=== PATIENT | male | born 2000 | race Caucasian/White ===

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

== ENCOUNTER 2022-05-11 11:46 | Emergency (ER) | payer MEDICAID ==
[~2022-05-11] VITALS: Ht 180.3 cm; Wt 110.0 kg
[~2022-05-11 11:46] MED LIST changes: +AZIT250T27 PO
[2022-05-11 12:04] VITALS: BP 115/61
== END 2022-05-11 12:45 | disposition left against medical advice (07) ==
LOC: ER 11:46
DX: S80.811A Abrasion, right lower leg, initial encounter (principal); Z53.21 Procedure and treatment not carried out due to patient leaving prior to being seen by health care provider; X58.XXXA Exposure to other specified factors, initial encounter; Y93.89 Activity, other specified; Y92.89 Other specified places as the place of occurrence of the external cause; Y99.8 Other external cause status

== ENCOUNTER 2022-05-20 23:29 | Emergency (ER) | payer MEDICAID ==
[~2022-05-20] VITALS: Ht 180.3 cm; Wt 103.2 kg
[2022-05-21 00:06] VITALS: BP 120/68
== END 2022-05-21 01:52 | disposition left against medical advice (07) ==
LOC: ER 23:29
DX: M79.604 Pain in right leg (principal); Z53.21 Procedure and treatment not carried out due to patient leaving prior to being seen by health care provider